=== PATIENT | female | born 1990 | race Caucasian/White ===

== ENCOUNTER 2021-07-12 18:02 | Emergency (ER) | payer BC, OTHER ==
[~2021-07-12] VITALS: Ht 167.7 cm; Wt 117.6 kg
[~2021-07-12 18:02] MED LIST: BUTA1TAB46 PO; PHEN200T27 PO; SULF1TAB38 PO; [UNRECOGNIZED DRUG - OTHER]
[2021-07-12] MEDS ORDERED: KETOROLAC 30 MG/ML VIAL IVP ONE (18:30)
[2021-07-12] MEDS ORDERED: ORPHENADRINE 60 MG/2 ML (NORFLEX) AMP (ED ONLY) IVP ONE (18:30)
--- NOTE | 2021-07-12 18:35 | ED Headache ---
General Chief Complaint: Head/Cervical Problems Stated Complaint: HEADACHE Nursing Triage Note: HEADACHE STARTED CONSTANT 3 WEEKS AGO, WITH HOT FLASHES AND BILATERAL ARM TINGLING, LIGHT HEADED AND DIZZINESS. 8/10 ON PAIN SCALE. Source: patient Exam Limitations: no limitations History of Present Illness Date Seen by Provider: Jul 12, 2021 Time Seen by Provider: 18:21 Initial Comments This is a well-appearing 31-year-old female who presented to the ER with complaints of constant headache just above her right ear for the past 3 weeks. States that she has a constant sharp, achy, stabbing sensation that is localized to the area. Reports intermittent hot flashes and dizziness. States that she did have some neck tenderness/muscle pain that was also associated with some tingling in her arms. Allergies and Home Medications Allergies Coded Allergies: cefaclor (Unverified Allergy, Mild, 01/20/09) medroxyprogesterone (Unverified Adverse Reaction, Unknown, nausea, 07/12/21) Patient Home Medication List Home Medication List Reviewed: Yes Acetamin/Butalbital/Caffeine (Esgic 50-325-40 Mg Tablet) 1 Each Tablet, 1 EACH PO Q 4 - 6 HRS PRN Prescribed by: VLAD ACOSTA on 12/18/11 0527 Review of Systems Review of Systems Constitutional: no symptoms reported Eyes: See HPI Ears, Nose, Mouth, Throat: no symptoms reported Respiratory: no symptoms reported Cardiovascular: no symptoms reported Gastrointestinal: no symptoms reported Genitourinary: no symptoms reported Musculoskeletal: no symptoms reported Skin: no symptoms reported Psychiatric/Neurological: No Symptoms Reported Past Kbyfkdi-Jgmwnz-Qgtmse Hx Patient Social History Tobacco Use?: No Use of E-Cig and/or Vaping dev: No Substance use?: No Alcohol Use?: Yes Alcohol Frequency: Once in a while Pt feels they are or have been: No Past Medical History Last Menstrual Period: Jun 25, 2021 Physical Exam Vital Signs Vital Signs - First Documented 07/12/21 18:10 Temp 36.6 Pulse 97 Resp 18 B/P (MAP) 113/89 (97) Pulse Ox 100 O2 Delivery Room Air Capillary Refill : Less Than 3 Seconds Height, Weight, BMI Height: '" Weight: lbs. oz. kg; 41.00 BMI Method:Estimated General Appearance: WD/WN, no apparent distress HEENT: PERRL/EOMI, normal ENT inspection, pharynx normal Neck: full range of motion, normal inspection Cardiovascular: regular rate, rhythm, no edema, no murmur Respiratory: chest non-tender, lungs clear, normal breath sounds, no respiratory distress, no accessory muscle use Gastrointestinal: normal bowel sounds, non tender, soft Back: normal inspection, no vertebral tenderness Extremities: normal range of motion, non-tender, normal inspection, no pedal edema Psychiatric: alert, oriented x 3 Crainal Nerves: normal hearing, normal speech, PERRL Coordination/Gait: normal gait Motor/Sensory: no motor deficit, no sensory deficit, no pronator drift Skin: normal color, warm/dry Progress/Results/Core Measures Results/Orders Lab Results Laboratory Tests Test 07/12/21 18:19 07/12/21 18:30 07/12/21 19:00 Range/Units Glucometer 95 70-110 MG/DL White Blood Count 11.4 H 4.3-11.0 10^3/uL Red Blood Count 4.97 3.80-5.11 10^6/uL Hemoglobin 13.9 11.5-16.0 g/dL Hematocrit 44 35-52 % Mean Corpuscular Volume 88 80-99 fL Mean Corpuscular Hemoglobin 28 25-34 pg Mean Corpuscular Hemoglobin Concent 32 32-36 g/dL Red Cell Distribution Width 12.8 10.0-14.5 % Platelet Count 305 130-400 10^3/uL Mean Platelet Volume 9.8 9.0-12.2 fL Immature Granulocyte % (Auto) 0 % Neutrophils (%) (Auto) 63 42-75 % Lymphocytes (%) (Auto) 28 12-44 % Monocytes (%) (Auto) 6 0-12 % Eosinophils (%) (Auto) 2 0-10 % Basophils (%) (Auto) 1 0-10 % Neutrophils # (Auto) 7.2 1.8-7.8 10^3/uL Lymphocytes # (Auto) 3.2 1.0-4.0 10^3/uL Monocytes # (Auto) 0.7 0.0-1.0 10^3/uL Eosinophils # (Auto) 0.2 0.0-0.3 10^3/uL Basophils # (Auto) 0.1 0.0-0.1 10^3/uL Immature Granulocyte # (Auto) 0.0 0.0-0.1 10^3/uL Erythrocyte Sedimentation Rate 4 0-20 MM/HR Sodium Level 137 135-145 MMOL/L Potassium Level 3.5 L 3.6-5.0 MMOL/L Chloride Level 102 98-107 MMOL/L Carbon Dioxide Level 23 21-32 MMOL/L Anion Gap 12 5-14 MMOL/L Blood Urea Nitrogen 13 7-18 MG/DL Creatinine 0.80 0.60-1.30 MG/DL Estimat Glomerular Filtration Rate 84 BUN/Creatinine Ratio 16 Glucose Level 109 H 70-105 MG/DL Calcium Level 9.8 8.5-10.1 MG/DL Corrected Calcium 9.6 8.5-10.1 MG/DL Total Bilirubin 0.3 0.1-1.0 MG/DL Aspartate Amino Transf (AST/SGOT) 14 5-34 U/L Alanine Aminotransferase (ALT/SGPT) 12 0-55 U/L Alkaline Phosphatase 100 40-136 U/L C-Reactive Protein High Sensitivity 0.90 H 0.00-0.50 MG/DL Total Protein 7.6 6.4-8.2 GM/DL Albumin 4.3 3.2-4.5 GM/DL Urine Color YELLOW Urine Clarity CLEAR Urine pH 6.0 5-9 Urine Specific [place] 1.010 L 1.016-1.022 Urine Protein NEGATIVE NEGATIVE Urine Glucose (UA) NEGATIVE NEGATIVE Urine Ketones NEGATIVE NEGATIVE Urine Nitrite NEGATIVE NEGATIVE Urine Bilirubin NEGATIVE NEGATIVE Urine Urobilinogen 0.2 < = 1.0 MG/DL Urine Leukocyte Esterase 1+ H NEGATIVE Urine RBC (Auto) 1+ H NEGATIVE Urine RBC 0-2 /HPF Urine WBC 0-2 /HPF Urine Squamous Epithelial Cells NONE /HPF Urine Renal Epithelial Cells NONE /HPF Urine Crystals NONE /LPF Urine Bacteria LARGE H /HPF Urine Casts NONE /LPF Urine Mucus NEGATIVE /LPF Urine Culture Indicated YES My Orders Orders - KARIME BYNUM APRN Cbc With Automated Diff (07/12/21 18:28) Comprehensive Metabolic Panel (07/12/21 18:28) Erythrocyte Sedimentation Rate (07/12/21 18:28) Hs C Reactive Protein (07/12/21 18:28) Urine Bedside (07/12/21 18:28) Ua Culture If Indicated (07/12/21 18:28) Ketorolac Injection (Toradol Injection) (07/12/21 18:30) Orphenadrine Inj (Ed Only) (Norflex Inje (07/12/21 18:30) Ct Head/Cervical Spine Wo (07/12/21 18:36) Urine Culture (07/12/21 19:00) Hydrocodone/Apap 5/325 Tablet (Lortab 5 (07/12/21 20:30) Medications Given in ED Current Medications Medications Dose Ordered Sig/Joan Route Start Time Stop Time Status Last Admin Dose Admin Acetaminophen/ Hydrocodone Bitart 1 ea ONCE ONCE PO 07/12/21 20:30 07/12/21 20:31 DC 07/12/21 21:16 1 EA Ketorolac Tromethamine 30 mg ONCE ONCE IVP 07/12/21 18:30 07/12/21 18:31 DC 07/12/21 18:53 30 MG Orphenadrine Citrate 30 mg ONCE ONCE IVP 07/12/21 18:30 07/12/21 18:31 DC 07/12/21 18:53 30 MG Vital Signs/I&O 07/12/21 18:10 Temp 36.6 Pulse 97 Resp 18 B/P (MAP) 113/89 (97) Pulse Ox 100 O2 Delivery Room Air Blood Pressure Mean: 97 FSBG Bedside Testing Finger Stick Blood Glucose: 95 Departure Impression Primary Impression: Migraine Disposition: 01 HOME, SELF-CARE Condition: Stable Departure-Patient Inst. Decision time for Depature: 20:09 Referrals: CANDELARIA LOPEZ DO (PCP/Family) Primary Care Physician Patient Instructions: Migraines in Adults Add. Discharge Instructions: Plan: 1. Keep follow up with your primary care provider as previously scheduled. 2. May take Tylenol or Ibuprofen as needed for pain. 3. Take Magnesium Glycinate daily to see if this will improve/prevent your migraine. 4. Return for any new, concerning, or worsening symptoms. 5. Take Hydrocodone as directed for severe breakthrough pain. Do not exceed more than 3000mg Tylenol in 24 hours. All discharge instructions reviewed with patient and/or family. Voiced understanding. Scripts Hydrocodone/Acetaminophen (Hydrocodone-Acetamin 5-325 mg) 1 Each Tablet 1 TAB PO Q6H PRN for PAIN-MODERATE (5-7), #10 TAB 0 Refills Prov: KARIME BYNUM WEB MARKETING STRATEGIST 07/12/21 KARIME BYNUM WEB MARKETING STRATEGIST Jul 12, 2021 18:35
[2021-07-12 18:49] LABS: ALBUMIN 4.3 GM/DL (3.2-4.5); POTASSIUM 3.5 MMOL/L (3.6-5.0)
[2021-07-12 18:51] LABS: CALCIUM 9.8 MG/DL (8.5-10.1)
[2021-07-12 18:52] LABS: BASOPHILS # (AUTO) 0.1 10^3/uL (0.0-0.1); BASOPHILS % (AUTO) 1 % (0-10); EOSINOPHILS # (AUTO) 0.2 10^3/uL (0.0-0.3); EOSINOPHILS % (AUTO) 2 % (0-10); HEMATOCRIT 44 % (35-52); HEMOGLOBIN 13.9 g/dL (11.5-16.0); LYMPHOCYTES # (AUTO) 3.2 10^3/uL (1.0-4.0); LYMPHOCYTES % (AUTO) 28 % (12-44); MEAN CORPUSCULAR HEMOGLOBIN 28 pg (25-34); MEAN CORPUSCULAR HGB CONC 32 g/dL (32-36); MEAN CORPUSCULAR VOLUME 88 fL (80-99); MEAN PLATELET VOLUME 9.8 fL (9.0-12.2); MONOCYTES # (AUTO) 0.7 10^3/uL (0.0-1.0); MONOCYTES % (AUTO) 6 % (0-12); NEUTROPHILS # (AUTO) 7.2 10^3/uL (1.8-7.8); NEUTROPHILS % (AUTO) 63 % (42-75); PLATELET COUNT 305 10^3/uL (130-400); TOTAL PROTEIN 7.6 GM/DL (6.4-8.2); WHITE BLOOD COUNT 11.4 10^3/uL (4.3-11.0)
[2021-07-12 18:53] LABS: BILIRUBIN,TOTAL 0.3 MG/DL (0.1-1.0)
[2021-07-12 18:55] LABS: CREATININE SERUM 0.8 MG/DL (0.60-1.30)
[2021-07-12 19:07] LABS: BILIRUBIN,URINE NEGATIVE (NEGATIVE); CLARITY,URINE CLEAR; COLOR,URINE YELLOW; GLUCOSE, URINE (UA) NEGATIVE (NEGATIVE); KETONES,URINE NEGATIVE (NEGATIVE); LEUKOCYTE ESTERASE ,URINE 1+ (NEGATIVE); NITRITE,URINE NEGATIVE (NEGATIVE); PROTEIN,URINE NEGATIVE (NEGATIVE)
[2021-07-12 19:11] LABS: ERYTHROCYTE SEDIMENTATION RATE 4 MM/HR (0-20)
[2021-07-12 19:18] LABS: BACTERIA,URINE LARGE /HPF; RBC,URINE 0-2 /HPF; WBC,URINE 0-2 /HPF
--- NOTE | 2021-07-12 19:51 | Diagnostic Imaging Report ---
PROCEDURE: CT head and CT cervical spine without contrast. TECHNIQUE: Multiple contiguous axial images were obtained through the brain and cervical spine without the use of intravenous contrast. Sagittal and coronal reformations through the cervical spine were then performed. Auto Exposure Controls were utilized during the CT exam to meet ALARA standards for radiation dose reduction. INDICATION: Right periauricular head pain accompanied by dizziness, nausea and vomiting. Numbness and tingling in the extremities. COMPARISON: No priors Head: There is no intracranial hemorrhage, hydrocephalus, edema, mass, mass effect or evidence for an elevation of the intracerebral pressures. The basilar cisterns patent. No sulcal effacement. The gr-white matter differentiations are maintained. The orbits, sinuses and calvarium nonacute. Cervical spine: Body heights normal. The alignment anatomic. The spinal canal patent. No fracture, bony destruction or paraspinal mass, hemorrhage or fluid collection. The prevertebral space appeared normal. No spinal stenosis. The craniocervical relationship normal. IMPRESSION: CT head and cervical spine. Dictated by: Dictated on workstation # [id number]
[2021-07-12] MEDS ORDERED: HYDROcodone/APAP 5 MG/325 MG (LORTAB) TAB PO ONE (20:30)
[2021-07-12] MEDS ORDERED: ACHD5005 PO (21:59)
[2021-07-12 22:50] VITALS: BP 111/71
== END 2021-07-12 22:50 | disposition home or self-care (01) ==
LOC: EDUNIT# 18:02 → ER 18:04
DX: G43.909 Migraine, unspecified, not intractable, without status migrainosus (principal)
CPT/HCPCS: 36415; 70450; 72125; 80053; 81000; 82947; 84703; 85025; 85652; 86141; 87077; 87088; 87186

== ENCOUNTER 2022-06-13 19:07 | Emergency (ER) | payer BC ==
[~2022-06-13] VITALS: Ht 172 cm; Wt 86.0 kg
[~2022-06-13 19:07] MED LIST changes: +ACHD5005 PO
[2022-06-13 20:00] LABS: BILIRUBIN,URINE NEGATIVE (NEGATIVE); CLARITY,URINE SL CLOUDY; COLOR,URINE YELLOW; GLUCOSE, URINE (UA) NEGATIVE (NEGATIVE); KETONES,URINE 1+ (NEGATIVE); LEUKOCYTE ESTERASE ,URINE NEGATIVE (NEGATIVE); NITRITE,URINE NEGATIVE (NEGATIVE); PROTEIN,URINE NEGATIVE (NEGATIVE)
[2022-06-13 20:25] LABS: BACTERIA,URINE NEGATIVE /HPF; RBC,URINE 50-100 /HPF; SQUAMOUS EPITHELIAL CELL,UR RARE /HPF; WBC,URINE RARE /HPF
[2022-06-13 20:26] LABS: HYALINE CASTS, URINE RARE /LPF; RENAL EPITHELIAL CELLS,URINE 0-2 /HPF
[2022-06-13 21:10] LABS: BASOPHILS % (AUTO) 0 % (0-10); EOSINOPHILS # (AUTO) 0.1 10^3/uL (0.0-0.3); EOSINOPHILS % (AUTO) 1 % (0-10); HEMATOCRIT 42 % (35-52); HEMOGLOBIN 13.5 g/dL (11.5-16.0); LYMPHOCYTES # (AUTO) 2.6 10^3/uL (1.0-4.0); LYMPHOCYTES % (AUTO) 22 % (12-44); MEAN CORPUSCULAR HEMOGLOBIN 28 pg (25-34); MEAN CORPUSCULAR HGB CONC 32 g/dL (32-36); MEAN CORPUSCULAR VOLUME 87 fL (80-99); MEAN PLATELET VOLUME 9.9 fL (9.0-12.2); MONOCYTES # (AUTO) 0.8 10^3/uL (0.0-1.0); MONOCYTES % (AUTO) 7 % (0-12); NEUTROPHILS # (AUTO) 8.1 10^3/uL (1.8-7.8); NEUTROPHILS % (AUTO) 70 % (42-75); PLATELET COUNT 288 10^3/uL (130-400); WHITE BLOOD COUNT 11.7 10^3/uL (4.3-11.0)
[2022-06-13] MEDS ORDERED: HYOSCYAMINE 0.125 MG (LEVSIN) TAB SL ONE (21:30)
[2022-06-13] MEDS ORDERED: ONDANSETRON 4 MG/2 ML (SDV) Z0FRAN IVP ONE (21:30)
[2022-06-13] MEDS ORDERED: KETOROLAC 30 MG/ML VIAL IVP ONE (22:15)
--- NOTE | 2022-06-13 22:29 | ED GU-Female ---
General Chief Complaint: Abdominal/GI Problems Stated Complaint: CRAMPS, VAGINAL BLEEDING Nursing Triage Note: PATIENT VERBALIZED SHE HAS HEAVING BLEEDING STATES GONE THORUGH MULTIPLE TAMPONS AND PADS TODAY. STATES HAS CLOTS. VERBALIZED LIGHT BLEEDING STARTED YESTERDAY. COMPLAINT OF LOWER ABDOMINAL PAIN/CRAMPING. Source: patient Exam Limitations: no limitations (JAKE TA MD) History of Present Illness Date Seen by Provider: Jun 13, 2022 Time Seen by Provider: 19:14 (JAKE TA MD) Allergies and Home Medications Allergies Coded Allergies: cefaclor (Unverified Allergy, Mild, 01/20/09) medroxyprogesterone (Unverified Adverse Reaction, Unknown, nausea, 07/12/21) Patient Home Medication List Home Medication List Reviewed: Yes (DEBBIE LOPEZ) Acetamin/Butalbital/Caffeine (Esgic 50-325-40 Mg Tablet) 1 Each Tablet, 1 EACH PO Q 4 - 6 HRS PRN Prescribed by: VLAD ACOSTA on 12/18/11 0527 Doxycycline Hyclate (Doxycycline Hyclate) 100 Mg Tablet, 100 MG PO BID Prescribed by: DEBBIE LOPEZ on 06/14/22924 Last Action: New Order Hydrocodone/Acetaminophen (Hydrocodone-Acetamin 5-325 mg) 1 Each Tablet, 1 TAB PO Q6H PRN for PAIN-MODERATE (5-7) Prescribed by: KARIME BYNUM on 07/12/21 2200 Ondansetron (Ondansetron Odt) 4 Mg Tab.rapdis, 4 MG PO Q6H PRN for NAUSEA/VOMITING Prescribed by: DEBBIE LOPEZ on 06/14/22924 Last Action: New Order Physical Exam Vital Signs Vital Signs - First Documented 06/13/22 20:24 Temp 36.3 Pulse 95 Resp 20 B/P (MAP) 131/83 (99) Pulse Ox 98 O2 Delivery Room Air (DEBBIE LOPEZ) Vital Signs Capillary Refill : Less Than 3 Seconds (JAKE TA MD) Height, Weight, BMI Height: '" Weight: lbs. oz. kg; 29.00 BMI Method:Estimated (JAKE TA MD) Progress/Results/Core Measures Suspected Sepsis SIRS Temperature: Pulse: 95 Respiratory Rate: 20 Laboratory Tests 9/5/22 20:48: White Blood Count 11.7H Blood Pressure 131 /83 Mean: 99 Laboratory Tests 06/13/22 20:48: Platelet Count 288 (JAKE TA MD) Results/Orders Lab Results Laboratory Tests Test 06/13/22 19:50 06/13/22 20:48 Range/Units Urine Color YELLOW Urine Clarity SL CLOUDY Urine pH 6.0 5-9 Urine Specific [place] >=1.030 1.016-1.022 Urine Protein NEGATIVE NEGATIVE Urine Glucose (UA) NEGATIVE NEGATIVE Urine Ketones 1+ H NEGATIVE Urine Nitrite NEGATIVE NEGATIVE Urine Bilirubin NEGATIVE NEGATIVE Urine Urobilinogen 0.2 < = 1.0 MG/DL Urine Leukocyte Esterase NEGATIVE NEGATIVE Urine RBC (Auto) 3+ H NEGATIVE Urine RBC 50-100 H /HPF Urine WBC RARE /HPF Urine Squamous Epithelial Cells RARE /HPF Urine Renal Epithelial Cells 0-2 /HPF Urine Crystals NONE /LPF Urine Bacteria NEGATIVE /HPF Urine Casts PRESENT /LPF Urine Hyaline Casts RARE /LPF Urine Mucus MODERATE H /LPF Urine Culture Indicated NO White Blood Count 11.7 H 4.3-11.0 10^3/uL Red Blood Count 4.90 3.80-5.11 10^6/uL Hemoglobin 13.5 11.5-16.0 g/dL Hematocrit 42 35-52 % Mean Corpuscular Volume 87 80-99 fL Mean Corpuscular Hemoglobin 28 25-34 pg Mean Corpuscular Hemoglobin Concent 32 32-36 g/dL Red Cell Distribution Width 13.4 10.0-14.5 % Platelet Count 288 130-400 10^3/uL Mean Platelet Volume 9.9 9.0-12.2 fL Immature Granulocyte % (Auto) 1 % Neutrophils (%) (Auto) 70 42-75 % Lymphocytes (%) (Auto) 22 12-44 % Monocytes (%) (Auto) 7 0-12 % Eosinophils (%) (Auto) 1 0-10 % Basophils (%) (Auto) 0 0-10 % Neutrophils # (Auto) 8.1 H 1.8-7.8 10^3/uL Lymphocytes # (Auto) 2.6 1.0-4.0 10^3/uL Monocytes # (Auto) 0.8 0.0-1.0 10^3/uL Eosinophils # (Auto) 0.1 0.0-0.3 10^3/uL Basophils # (Auto) 0.0 0.0-0.1 10^3/uL Immature Granulocyte # (Auto) 0.1 0.0-0.1 10^3/uL Human Chorionic Gonadotropin, Quant 1062 H <5 MIU/ML (DEBBIE LOPEZ) Medications Given in ED (DEBBIE LOPEZ) Vital Signs/I&O (DEBBIE LOPEZ) Vital Signs/I&O Capillary Refill : Less Than 3 Seconds (JAKE TA MD) Blood Pressure Mean: 99 Progress Note : Time: 09:26 Progress Note The patient had her ultrasound outpatient and I met with her and discussed the findings that there was a heterogenous mass in the lower uterine segment and upper vagina around the cervix without any pole. She did not know she was until tonight. We discussed with her she is likely having a miscarriage based on her quantitative and history and ultrasound. She is having a little nausea and a fever. For the potential of a endometritis we will send her out on doxycycline for 10 days, ondansetron and follow-up with her core cleaner today. Patient's questions were answered and she is okay with this plan. (DEBBIE LOPEZ) Departure Impression Primary Impression: Vaginal bleeding during Additional Impression: Pelvic pain affecting Qualified Codes: O26.891 - Other specified related conditions, first trimester; R10.2 - Pelvic and perineal pain Disposition: 01 HOME, SELF-CARE Condition: Stable Departure-Patient Inst. Decision time for Depature: 22:26 (JAKE TA MD) Referrals: CANDELARIA LOPEZ DO (PCP/Family) Primary Care Physician Patient Instructions: Bleeding in Early (DC), Threatened Miscarriage Add. Discharge Instructions: You may take ibuprofen up to 600 mg every 6 hours and/or Tylenol (acetaminophen) up to 1000 mg every 6 hours as needed for pain. Expect continued cramping and heavier bleeding if this is a miscarriage. Do not use tampons. Return to the ER if you have excessive hemorrhaging type of bleeding, lightheadedness, fever over 100.3 F, vomiting, worsening shortness of breath, intolerable pain, etc. Return to the hospital at 7:30 tomorrow morning with your order sheet for labs and and ultrasound. Do not eat or drink after 2:00 AM. After your ultrasound, weight at the hospital until you receive instructions based on ultrasound report. You will need to follow-up with a primary care or women's health provider soon as possible to follow your condition after leaving the hospital. All discharge instructions reviewed with patient and/or family. Voiced understanding. Scripts Ondansetron (Ondansetron Odt) 4 Mg Tab.rapdis 4 MG PO Q6H PRN for NAUSEA/VOMITING, #10 TAB 0 Refills Prov: DEBBIE LOPEZ 06/14/22 Doxycycline Hyclate (Doxycycline Hyclate) 100 Mg Tablet 100 MG PO BID for 10 Days, #20 TAB 0 Refills Prov: DEBBIE LOPEZ 06/14/22 JAKE AT MD Jun 13, 2022 22:29 DEBBIE LOPEZ Jun 14, 2022 09:26
[2022-06-13 22:43] VITALS: BP 128/78
[2022-06-14] MEDS ORDERED: DOXY100T2 PO (09:25)
[2022-06-14] MEDS ORDERED: ONDA4TAB11 PO (09:25)
== END 2022-06-13 22:45 | disposition home or self-care (01) ==
LOC: EDUNIT# 19:07 → ER 19:09
DX: O46.90 Antepartum hemorrhage, unspecified, unspecified trimester (principal); Z3A.00 Weeks of gestation of pregnancy not specified
CPT/HCPCS: 36415; 81000; 84702; 84703; 85025; 86900; 86901

== ENCOUNTER → 2022-06-14 | Outpatient (CLI) | payer BC ==
[~2022-06-14] MED LIST changes: +DOXY100T2 PO; +ONDA4TAB11 PO
[2022-06-14 09:43] LABS: BASOPHILS % (AUTO) 0 % (0-10); EOSINOPHILS # (AUTO) 0.1 10^3/uL (0.0-0.3); EOSINOPHILS % (AUTO) 1 % (0-10); HEMATOCRIT 42 % (35-52); HEMOGLOBIN 13.3 g/dL (11.5-16.0); LYMPHOCYTES # (AUTO) 1.5 10^3/uL (1.0-4.0); LYMPHOCYTES % (AUTO) 19 % (12-44); MEAN CORPUSCULAR HEMOGLOBIN 28 pg (25-34); MEAN CORPUSCULAR HGB CONC 32 g/dL (32-36); MEAN CORPUSCULAR VOLUME 87 fL (80-99); MEAN PLATELET VOLUME 9.8 fL (9.0-12.2); MONOCYTES # (AUTO) 0.6 10^3/uL (0.0-1.0); MONOCYTES % (AUTO) 7 % (0-12); NEUTROPHILS # (AUTO) 5.9 10^3/uL (1.8-7.8); NEUTROPHILS % (AUTO) 73 % (42-75); PLATELET COUNT 288 10^3/uL (130-400); WHITE BLOOD COUNT 8.2 10^3/uL (4.3-11.0)
--- NOTE | 2022-06-14 09:57 | Diagnostic Imaging Report ---
Indication: Pelvic pain and bleeding. Transabdominal and transvaginal obstetrical ultrasound was performed. Limited pelvic Doppler was also performed. Uterus measures 8.3 x 4.2 x 5.2 cm. Endometrium is 8 mm in thickness. There is a complex masslike area in the lower uterine segment measuring 4.2 x 3.4 x 4.6 cm without internal vascularity. This could represent blood products. No gestational sac is seen within the uterus or within the adnexa. Right ovary measures 3.2 x 1.7 x 1.7 cm and the left ovary measures 3.4 x 1.9 x 2.0 cm. There is blood flow to the ovaries. No adnexal mass or free fluid is seen. IMPRESSION: Complex masslike region in lower uterine segment and cervix, perhaps representing blood products from spontaneous . No intrauterine or ectopic is identified. Dictated by: Dictated on workstation # [id number]
== END ==
LOC: RAD 08:10
PROVIDERS: ATTEND Family Medicine
DX: O26.859 Spotting complicating pregnancy, unspecified trimester (principal); Z3A.00 Weeks of gestation of pregnancy not specified
CPT/HCPCS: 36415; 76801; 76817; 84702; 85025

== ENCOUNTER 2022-06-15 10:06 | Emergency (ER) | payer BC ==
[2022-06-15] MEDS ORDERED: ONDANSETRON 4 MG/2 ML (SDV) Z0FRAN ONE (10:40)
[2022-06-15] MEDS ORDERED: PROMETHAZINE INJ 25 MG/ML (PHENERGAN) AMP IVP ONE (11:00)
[2022-06-15] MEDS ORDERED: KETOROLAC 30 MG/ML VIAL IVP ONE (11:00)
[2022-06-15] MEDS ORDERED: NS IV 1000 ML 1,000 ML IV ONE (11:00)
--- NOTE | 2022-06-15 12:17 | ED Abdominal Pain ---
General Chief Complaint: Abdominal/GI Problems Stated Complaint: ABD/PELVIC PAIN - VOMITING - FEVER Nursing Triage Note: PT AMB TO [facility] 8 WITH C/O LOW ABD CRAMPING AND BLEEDING AFTER MISCARRIAGE. PT STATES SHE HAS ALSO STARTED VOMITTING THIS MORNING. Source of Information: Patient Exam Limitations: No Limitations History of Present Illness Date Seen by Provider: Jun 15, 2022 Time Seen by Provider: 12:12 Allergies and Home Medications Allergies Coded Allergies: cefaclor (Unverified Allergy, Mild, 01/20/09) medroxyprogesterone (Unverified Adverse Reaction, Unknown, nausea, 07/12/21) Patient Home Medication List Acetamin/Butalbital/Caffeine (Esgic 50-325-40 Mg Tablet) 1 Each Tablet, 1 EACH PO Q 4 - 6 HRS PRN Prescribed by: VLDA ACOSTA on 12/18/11 0527 Doxycycline Hyclate (Doxycycline Hyclate) 100 Mg Tablet, 100 MG PO BID Prescribed by: DEBBIE LOPEZ on 06/14/22 0925 Hydrocodone/Acetaminophen (Hydrocodone-Acetamin 5-325 mg) 1 Each Tablet, 1 TAB PO Q6H PRN for PAIN-MODERATE (5-7) Prescribed by: KARIME BYNUM on 07/12/21 2200 Ondansetron (Ondansetron Odt) 4 Mg Tab.rapdis, 4 MG PO Q6H PRN for NAUSEA/VOMITING Prescribed by: DEBBIE LOPEZ on 06/14/22 0925 Past Ulqsrcm-Wtstdy-Dvbrpn Hx Patient Social History Tobacco Use?: No Use of E-Cig and/or Vaping dev: No Substance use?: No Alcohol Use?: No Pt feels they are or have been: No Immunizations Up To Date First/Initial COVID19 Vaccinat: YES Second COVID19 Vaccination Ismael: YES Third COVID19 Vaccination Date: YES Physical Exam Vital Signs Vital Signs - First Documented 06/15/22 10:29 Temp 37.0 Pulse 74 Resp 18 B/P (MAP) 126/73 (90) Capillary Refill : Height/Weight/BMI Height: '" Weight: lbs. oz. kg; 29.00 BMI Method:Estimated Progress/Results/Core Measures Results/Orders My Orders Orders - KARIME BYNUM MANAGER VALUATION Ketorolac Injection (Toradol Injection) (06/15/22 11:00) Ns Iv 1000 Ml (Sodium Chloride 0.9%) (06/15/22 11:00) Medications Given in ED Current Medications Medications Dose Ordered Sig/Joan Route Start Time Stop Time Status Last Admin Dose Admin Ketorolac Tromethamine 30 mg ONCE ONCE IVP 06/15/22 11:00 06/15/22 11:01 DC 06/15/22 11:20 30 MG Ondansetron HCl 4 mg STK-MED ONCE .ROUTE 06/15/22 10:40 06/15/22 10:45 DC 06/15/22 10:55 4 MG Sodium Chloride 1,000 ml @ 999 mls/hr ONCE ONCE IV 06/15/22 11:00 06/15/22 12:00 DC 06/15/22 11:19 999 MLS/HR Vital Signs/I&O 06/15/22 10:29 Temp 37.0 Pulse 74 Resp 18 B/P (MAP) 126/73 (90) Blood Pressure Mean: 90 Departure Impression Primary Impression: Spontaneous miscarriage Disposition: HOME, SELF-CARE Condition: Improved Departure-Patient Inst. Decision time for Depature: 12:12 Referrals: CANDELARIA LOPEZ DO (PCP/Family) Primary Care Physician Patient Instructions: Miscarriage, Loss (Miscarriage) ED Add. Discharge Instructions: Plan: 1. Discharge home. Return precautions outlined below. You can continue your Doxycycline as previously directed. 2. You will probably have some vaginal bleeding for 1 to 2 weeks. It may be similar to or slightly heavier than a normal period. The bleeding should get steward/stewardess dining room after a week. Use sanitary pads until you stop bleeding. 3. Take an rufp-hvt-dteppyh pain medicine, such as acetaminophen (Tylenol), ibuprofen (Advil, Motrin), or naproxen (Aleve) for cramps per bottle instructions. 4. You may have cramps for several days after the miscarriage. 5. Eat a balanced diet that is high in iron and vitamin C. Foods rich in iron include red meat, shellfish, eggs, beans, and leafy green vegetables. Foods high in vitamin C include citrus fruits, tomatoes, and broccoli. 6. Follow up with your ART DEPARTMENT HEAD, please call to schedule close follow up. 7. Return precautions: Fever of 100.4 or higher, vaginal odor, increased pain, heavy bleeding, saturating a pad a hour, dizziness, fainting, shortness of breathing. 8. Return for any new, concerning, or worsening symptoms. All discharge instructions reviewed with patient and/or family. Voiced understanding. KARIME BYNUM MANAGER VALUATION Jun 15, 2022 12:17
[2022-06-15 12:22] VITALS: BP 124/70
== END 2022-06-15 12:22 | disposition home or self-care (01) ==
LOC: EDUNIT# 10:06 → ER 10:08
DX: O03.9 Complete or unspecified spontaneous abortion without complication (principal)

== ENCOUNTER 2022-11-19 17:25 | Emergency (ER) | payer BC ==
[~2022-11-19] VITALS: Ht 167 cm; Wt 116.5 kg
[2022-11-19] MEDS ORDERED: NS IV 1000 ML 1,000 ML IV STA (17:46)
--- NOTE | 2022-11-19 17:48 | ED GU-Female ---
General Chief Complaint: - Reproductive Stated Complaint: UTI | 11 WEEKS Source: patient Exam Limitations: no limitations (MJ OCHOA MD) History of Present Illness Date Seen by Provider: Nov 19, 2022 Time Seen by Provider: 17:32 Initial Comments Here with report of dysuria and low back pain for a few days as well as nausea and vomiting that has persisted throughout her . She is approximately 11 weeks by dates. She has had 1 previous that resulted in early miscarriage. She follows with Dr. Smith for her OB work-up. She has had pr escription for Reglan and ondansetron (which she is currently on) for nausea and vomiting and states that that is not helping. She is worried about urinary tract infection. She thought she might of had a low-grade fever earlier. Denies bleeding. Timing/Duration: getting worse, other (Cellulitis) Severity/Quality: mild, aching, burning Location: suprapubic, urethral Radiation: back Activities at Onset: none Associated Symptoms: abdominal pain, dysuria, fever/chills, lower back pain, nausea/vomiting (MJ OCHOA MD) Allergies and Home Medications Allergies Coded Allergies: cefaclor (Unverified Allergy, Mild, 01/20/09) medroxyprogesterone (Unverified Adverse Reaction, Unknown, nausea, 07/12/21) Patient Home Medication List Home Medication List Reviewed: Yes (MJ OCHOA MD) Acetamin/Butalbital/Caffeine (Esgic 50-325-40 Mg Tablet) 1 Each Tablet, 1 EACH PO Q 4 - 6 HRS PRN Prescribed by: VLAD ACOSTA on 12/18/11 0527 Doxycycline Hyclate (Doxycycline Hyclate) 100 Mg Tablet, 100 MG PO BID Prescribed by: DEBBIE LOPEZ on 06/14/22 0925 Doxylamine/Pyridoxine HCl (Julia Alvarado 10-10 mg Tablet) 10 Mg-10 Mg Tablet.dr, 2 EACH PO HS Prescribed by: VLAD ACOSTA on 11/19/221930 Hydrocodone/Acetaminophen (Hydrocodone-Acetamin 5-325 mg) 1 Each Tablet, 1 TAB PO Q6H PRN for PAIN-MODERATE (5-7) Prescribed by: KARIME BYNUM on 07/12/212199 Nitrofurantoin Monohyd/M-Cryst (Macrobid 100 mg Capsule) 100 Mg Capsule, 1 TAB PO BID Prescribed by: VLAD ACOSTA on 11/19/221935 Ondansetron (Ondansetron Odt) 4 Mg Tab.rapdis, 4 MG PO Q6H PRN for NAUSEA/VOMITING Prescribed by: DEBBIE LOPEZ on 06/14/22 09 Ondansetron (Ondansetron Odt) 4 Mg Tab.rapdis, 4 MG PO Q4H Prescribed by: VLAD ACOSTA on 11/19/221930 Review of Systems Review of Systems Constitutional: fever; No weakness EENTM: no symptoms reported Respiratory: No cough, No short of breath Cardiovascular: no symptoms reported Gastrointestinal: nausea, vomiting Genitourinary: burning, dysuria : Yes Musculoskeletal: back pain (MJ OCHOA MD) Past Jxqbnic-Atdmgc-Auxzdj Hx Patient Social History Tobacco Use?: No Substance use?: No Alcohol Use?: No Pt feels they are or have been: No (MJ OCHOA MD) Immunizations Up To Date First/Initial COVID19 Vaccinat: YES Second COVID19 Vaccination Ismael: YES Third COVID19 Vaccination Date: YES (MJ OCHOA MD) Past Medical History Surgeries: Yes (Foreign body removed from foot (needle)) Neurological: Yes Headaches /Migraines (MJ OCHOA MD) Family Medical History Reviewed and Corrections made (MJ OCHOA MD) Physical Exam Vital Signs Vital Signs - First Documented 11/19/22 11/19/22 17:45 19:53 Temp 36.0 Pulse 109 Resp 16 B/P (MAP) 139/88 (105) Pulse Ox 98 O2 Delivery Room Air (VLAD ACOSTA DO) Vital Signs Capillary Refill : (MJ OCHOA MD) Height, Weight, BMI Height: '" Weight: lbs. oz. kg; 29.00 BMI Method:Estimated General Appearance: WD/WN, no apparent distress HEENT: PERRL/EOMI, pharynx normal Cardiovascular: no murmur, tachycardia Respiratory: lungs clear, normal breath sounds Gastrointestinal: non tender, soft Neurologic/Psychiatric: alert, normal mood/affect, oriented x 3 Skin: normal color, warm/dry (MJ OCHOA MD) Progress/Results/Core Measures Suspected Sepsis SIRS Temperature: Pulse: Respiratory Rate: Laboratory Tests 11/19/22 17:41: White Blood Count 10.4 Blood Pressure / Mean: Laboratory Tests 11/19/22 17:41: Platelet Count 302 (MJ OCHOA MD) Results/Orders Lab Results Laboratory Tests Test 11/19/22 17:41 11/19/22 18:30 Range/Units White Blood Count 10.4 4.3-11.0 10^3/uL Red Blood Count 5.31 H 3.80-5.11 10^6/uL Hemoglobin 14.3 11.5-16.0 g/dL Hematocrit 44 35-52 % Mean Corpuscular Volume 83 80-99 fL Mean Corpuscular Hemoglobin 27 25-34 pg Mean Corpuscular Hemoglobin Concent 33 32-36 g/dL Red Cell Distribution Width 13.8 10.0-14.5 % Platelet Count 302 130-400 10^3/uL Mean Platelet Volume 10.5 9.0-12.2 fL Immature Granulocyte % (Auto) 1 % Neutrophils (%) (Auto) 67 42-75 % Lymphocytes (%) (Auto) 25 12-44 % Monocytes (%) (Auto) 6 0-12 % Eosinophils (%) (Auto) 1 0-10 % Basophils (%) (Auto) 0 0-10 % Neutrophils # (Auto) 7.0 1.8-7.8 10^3/uL Lymphocytes # (Auto) 2.6 1.0-4.0 10^3/uL Monocytes # (Auto) 0.7 0.0-1.0 10^3/uL Eosinophils # (Auto) 0.1 0.0-0.3 10^3/uL Basophils # (Auto) 0.0 0.0-0.1 10^3/uL Immature Granulocyte # (Auto) 0.1 0.0-0.1 10^3/uL Sodium Level 136 135-145 MMOL/L Potassium Level 3.5 L 3.6-5.0 MMOL/L Chloride Level 103 98-107 MMOL/L Carbon Dioxide Level 19 L 21-32 MMOL/L Anion Gap 14 5-14 MMOL/L Blood Urea Nitrogen 5 L 7-18 MG/DL Creatinine 0.67 0.60-1.30 MG/DL Estimat Glomerular Filtration Rate 119 BUN/Creatinine Ratio 7 Glucose Level 85 70-105 MG/DL Calcium Level 9.7 8.5-10.1 MG/DL Corrected Calcium 9.5 8.5-10.1 MG/DL Total Bilirubin 0.5 0.1-1.0 MG/DL Aspartate Amino Transf (AST/SGOT) 17 5-34 U/L Alanine Aminotransferase (ALT/SGPT) 34 0-55 U/L Alkaline Phosphatase 94 40-136 U/L Total Protein 7.6 6.4-8.2 GM/DL Albumin 4.2 3.2-4.5 GM/DL Urine Color IMAN H Urine Clarity CLEAR Urine pH 6.0 5-9 Urine Specific [place] >=1.030 1.016-1.022 Urine Protein TRACE H NEGATIVE Urine Glucose (UA) NEGATIVE NEGATIVE Urine Ketones 3+ H NEGATIVE Urine Nitrite NEGATIVE NEGATIVE Urine Bilirubin NEGATIVE NEGATIVE Urine Urobilinogen 1.0 < = 1.0 MG/DL Urine Leukocyte Esterase TRACE H NEGATIVE Urine RBC (Auto) 1+ H NEGATIVE Urine RBC 0-2 /HPF Urine WBC 10-25 H /HPF Urine Squamous Epithelial Cells 5-10 /HPF Urine Crystals NONE /LPF Urine Bacteria FEW H /HPF Urine Casts NONE /LPF Urine Mucus MODERATE H /LPF Urine Culture Indicated YES (VLAD ACOSTA DO) My Orders Orders - VLAD ACOSTA DO Metoclopramide Injection (Reglan Injecti (11/19/22 18:15) Hcg,Quantitative (11/19/22 18:30) Rx-Ondansetron Po (Rx-Zofran Po) (11/19/22 19:28) Piperacillin Sodium/Tazobactam (Zosyn Vi (11/19/22 19:45) (VLAD ACOSTA DO) Medications Given in ED Current Medications Medications Dose Ordered Sig/Joan Route Start Time Stop Time Status Last Admin Dose Admin Metoclopramide HCl 10 mg ONCE ONCE IVP 11/19/22 18:15 11/19/22 18:16 DC 11/19/22 18:33 10 MG Ondansetron HCl 4 mg ONCE ONCE IVP 11/19/22 18:00 11/19/22 18:01 DC 11/19/22 18:03 4 MG Piperacillin Sod/ Tazobactam Sod 4.5 gm/Sodium Chloride 100 ml @ 200 mls/hr ONCE ONCE IV 11/19/22 19:45 11/19/22 20:14 11/19/22 19:46 200 MLS/HR (VLAD ACOSTA DO) Vital Signs/I&O 11/19/22 11/19/22 17:45 19:53 Temp 36.0 Pulse 109 93 Resp 16 16 B/P (MAP) 139/88 (105) 123/84 Pulse Ox 98 99 O2 Delivery Room Air (VLAD ACOSTA DO) Vital Signs/I&O Capillary Refill : (MJ OCHOA MD) Progress Note : Progress Note Seen and evaluated. IV, labs including CBC, CMP and UA ordered. Normal saline 1 L bolus. Zofran 4 mg IV for nausea. I did perform bedside ultrasound which shows positive movement and heart tones of approximately 140. Differential diagnosis includes UTI, dehydration, electrolyte abnormality 1800: Care transferred to Dr. ACOSTA pending labs, UA and improvement. (MJ OCHOA MD) Progress Note : Progress Note 1800--ASSUMED CARE FROM DR. OCHOA IV FLUIDS AND ZOFRAN HAVE BEEN ORDERED 1914--FEELING MUCH BETTER, AND HAS VOIDED AFTER 1 LITER OF FLUIDS. NAUSEA IS GONE AT THIS TIME. UA DOES SHOW UTI. WILL GIVE DOSE OF IV ANTIBIOTICS HERE, AND SEND HOME WITH RX FOR ANTIBIOTICS, PENDING URINE CULTURE RESULTS. UNEVENTFUL ER STAY VITALS STABLE NO EVIDENCE OF SEPSIS OR SIGNIFICANT DEHYDRATION BLOOD TYPE IS O + PT IS NOT HAVING ANY VAGINAL BLEEDING OR ABDOMINAL PAIN / CRAMPING REVIEWED TEST RESULTS, ANTICIPATED COURSE, SYMPTOMATIC TREATMENT, MEDICATIONS, NEED FOR FOLLOW UP AND RETURN PRECAUTIONS. PT HAS AN APPOINTMENT WITH OB ON 12/05/22 FOR ROUTINE VISIT. (VLAD ACOSTA DO) Departure Impression Primary Impression: Nausea and vomiting during prior to 22 weeks gestation Additional Impression: UTI (urinary tract infection) in in first trimester Disposition: HOME, SELF-CARE Condition: Improved Departure-Patient Inst. Decision time for Depature: 19:29 (VLAD ACOSTA DO) Referrals: CANDELARIA LOPEZ DO (PCP/Family) Primary Care Physician Patient Instructions: Morning Sickness ED, Urinary Tract Infection, Adult (DC) Add. Discharge Instructions: CLEAR LIQUIDS, SIPS AT A TIME--WATER, BROTH, JELLO, GATORADE, POPSICLES BRATS DIET--BANANAS, RICE, APPLESAUCE, TOAST, SALTINES TYLENOL NEEDED FOR PAIN FOLLOW UP WITH YOUR OB DR SCHEDULED, OR SOONER IF NEEDED RETURN TO ER IF YOUR SYMPTOMS WORSEN All discharge instructions reviewed with patient and/or family. Voiced understanding. Scripts Nitrofurantoin Monohyd/M-Cryst (Macrobid 100 mg Capsule) 100 Mg Capsule 1 TAB PO BID, #20 CAP Prov: VLAD ACOSTA DO 11/19/22 Ondansetron (Ondansetron Odt) 4 Mg Tab.rapdis 4 MG PO Q4H for Nausea/Vomiting, #10 TAB Prov: VLAD ACOSTA DO 11/19/22 Doxylamine/Pyridoxine HCl (Julia Alvarado 10-10 mg Tablet) 10 Mg-10 Mg Tablet.dr 2 EACH PO HS, #60 TAB Prov: VLAD ACOSTA DO 11/19/22 MJ OCHOA MD Nov 19, 2022 17:48 VLAD ACOSTA DO Nov 19, 2022 19:33
[2022-11-19 17:53] LABS: BASOPHILS % (AUTO) 0 % (0-10); EOSINOPHILS # (AUTO) 0.1 10^3/uL (0.0-0.3); EOSINOPHILS % (AUTO) 1 % (0-10); HEMATOCRIT 44 % (35-52); HEMOGLOBIN 14.3 g/dL (11.5-16.0); LYMPHOCYTES # (AUTO) 2.6 10^3/uL (1.0-4.0); LYMPHOCYTES % (AUTO) 25 % (12-44); MEAN CORPUSCULAR HEMOGLOBIN 27 pg (25-34); MEAN CORPUSCULAR HGB CONC 33 g/dL (32-36); MEAN CORPUSCULAR VOLUME 83 fL (80-99); MEAN PLATELET VOLUME 10.5 fL (9.0-12.2); MONOCYTES # (AUTO) 0.7 10^3/uL (0.0-1.0); MONOCYTES % (AUTO) 6 % (0-12); NEUTROPHILS % (AUTO) 67 % (42-75); PLATELET COUNT 302 10^3/uL (130-400); WHITE BLOOD COUNT 10.4 10^3/uL (4.3-11.0)
[2022-11-19] MEDS ORDERED: ONDANSETRON 4 MG/2 ML (SDV) Z0FRAN IVP ONE (18:00)
[2022-11-19 18:02] LABS: ALBUMIN 4.2 GM/DL (3.2-4.5)
[2022-11-19 18:03] LABS: POTASSIUM 3.5 MMOL/L (3.6-5.0)
[2022-11-19 18:04] LABS: CALCIUM 9.7 MG/DL (8.5-10.1)
[2022-11-19 18:05] LABS: TOTAL PROTEIN 7.6 GM/DL (6.4-8.2)
[2022-11-19 18:07] LABS: BILIRUBIN,TOTAL 0.5 MG/DL (0.1-1.0)
[2022-11-19 18:08] LABS: CREATININE SERUM 0.67 MG/DL (0.60-1.30)
[2022-11-19] MEDS ORDERED: METOCLOPRAMIDE INJ 10 MG/2 ML (REGLAN) IVP ONE (18:15)
[2022-11-19 18:42] LABS: BILIRUBIN,URINE NEGATIVE (NEGATIVE); CLARITY,URINE CLEAR; COLOR,URINE AMBER; GLUCOSE, URINE (UA) NEGATIVE (NEGATIVE); KETONES,URINE 3+ (NEGATIVE); LEUKOCYTE ESTERASE ,URINE TRACE (NEGATIVE); NITRITE,URINE NEGATIVE (NEGATIVE); PROTEIN,URINE TRACE (NEGATIVE)
[2022-11-19 18:54] LABS: BACTERIA,URINE FEW /HPF; RBC,URINE 0-2 /HPF
[2022-11-19] MEDS ORDERED: RX-ONDANSETRON 4 MG ODT (ZOFRAN) PPK #4 PO STA (19:28)
[2022-11-19] MEDS ORDERED: DOXY1TAB3 PO (19:31)
[2022-11-19] MEDS ORDERED: ONDA4TAB11 PO (19:31)
[2022-11-19] MEDS ORDERED: NITR-65 PO (19:36)
[2022-11-19] MEDS ORDERED: PIPERACILLIN SODIUM/TAZOBACTAM 4.5 GM in NS (IVPB) 100 ML IV ONE (19:45)
[2022-11-19 19:53] VITALS: BP 123/84
== END 2022-11-19 20:18 | disposition home or self-care (01) ==
LOC: EDUNIT# 17:25 → ER 17:27
DX: O21.9 Vomiting of pregnancy, unspecified (principal); O23.41 Unspecified infection of urinary tract in pregnancy, first trimester; N39.0 Urinary tract infection, site not specified; Z3A.11 11 weeks gestation of pregnancy; Z88.1 Allergy status to other antibiotic agents
CPT/HCPCS: 36415; 80053; 81000; 84702; 85025; 87088; 99284

== ENCOUNTER 2022-11-19 20:43 | Emergency (ER) | payer BC ==
[~2022-11-19] VITALS: Ht 167 cm; Wt 116.5 kg
[~2022-11-19 20:43] MED LIST changes: +DOXY1TAB3 PO; +NITR-65 PO
[2022-11-19] MEDS ORDERED: diphenhydrAMINE 50 MG/ML INJ (BENADRYL) IV STA (20:47)
[2022-11-19] MEDS ORDERED: methylPREDNISolone 125 MG (Solu-MEDROL) VIAL IV STA (20:47)
[2022-11-19] MEDS ORDERED: NS IV 1000 ML 1,000 ML IV SCH (21:00)
--- NOTE | 2022-11-19 21:27 | ED General ---
General Chief Complaint: Allergic Reaction Stated Complaint: POSS ALLERGIC REACTION Nursing Triage Note: PT C/O REDNESS AND HIVES ON FACE, NECK, AND CHEST AFTER TAKING ZOSYN IN ED. PT ALSO REPORTS SCRATCHINESS TO THROAT. DENIES ANY DIFFICULTY WITH SWALLOWING OR BREATHING. Source of Information: Patient History of Present Illness Date Seen by Provider: Nov 19, 2022 Time Seen by Provider: 20:47 Initial Comments PT ARRIVES VIA POV FROM HOME PT WAS JUST DISMISSED FROM ER A SHORT TIME AGO, AND WAS TREATED FOR NAUSEA/VOMITING OF ALONG WITH UTI SHE WAS GIVEN IV FLUIDS AND ZOFRAN ( WHICH SHE HAS HAD BEFORE AND NOT HAD PROBLEMS), AND WAS GIVEN A DOSE OF IV ZOSYN FOR UTI SHE DID NOT HAVE ANY PROBLEMS UNTIL SHE GOT HOME, WHEN SHE BEGAN TO FEEL FLUSHED IN THE FACE, AND BEGAN TO DEVELOP HIVES AND ITCHING TO HER FACE AND NECK, AND CAME BACK TO ER SHE HAS NOT HAD ANY SWELLING ANYWHERE, NO DIFFICULTY SWALLOWING, NO VOICE CHANGES, NO DIFFICULTY BREATHING OR WHEEZING NO DIZZINESS OR SYNCOPE Allergies and Home Medications Allergies Coded Allergies: cefaclor (Unverified Allergy, Mild, 01/20/09) medroxyprogesterone (Unverified Adverse Reaction, Unknown, nausea, 07/12/21) Patient Home Medication List Acetamin/Butalbital/Caffeine (Esgic 50-325-40 Mg Tablet) 1 Each Tablet, 1 EACH PO Q 4 - 6 HRS PRN Prescribed by: VLAD ACOSTA on 12/18/11 0527 Doxycycline Hyclate (Doxycycline Hyclate) 100 Mg Tablet, 100 MG PO BID Prescribed by: DEBBIE LOPEZ on 06/14/22 0925 Doxylamine/Pyridoxine HCl (Julia Alvarado 10-10 mg Tablet) 10 Mg-10 Mg Tablet.dr, 2 EACH PO HS Prescribed by: VLAD ACOSTA on 11/19/221930 Hydrocodone/Acetaminophen (Hydrocodone-Acetamin 5-325 mg) 1 Each Tablet, 1 TAB PO Q6H PRN for PAIN-MODERATE (5-7) Prescribed by: KARIME BYNUM on 07/12/212199 Nitrofurantoin Monohyd/M-Cryst (Macrobid 100 mg Capsule) 100 Mg Capsule, 1 TAB PO BID Prescribed by: VLAD ACOSTA on 2/11/23 1936 Ondansetron (Ondansetron Odt) 4 Mg Tab.rapdis, 4 MG PO Q6H PRN for NAUSEA/VOMITING Prescribed by: DBEBIE LOPEZ on 06/14/22 0925 Ondansetron (Ondansetron Odt) 4 Mg Tab.rapdis, 4 MG PO Q4H Prescribed by: VLAD ACOSTA on 11/19/22 193 Review of Systems Review of Systems Constitutional: no symptoms reported EENTM: see HPI Respiratory: no symptoms reported Cardiovascular: no symptoms reported Gastrointestinal: see HPI Genitourinary: see HPI Musculoskeletal: no symptoms reported Skin: see HPI Psychiatric/Neurological: No Symptoms Reported Past Wobxdjd-Xizwji-Pmwswm Hx Patient Social History Tobacco Use?: No Substance use?: No Alcohol Use?: No Immunizations Up To Date First/Initial COVID19 Vaccinat: YES Second COVID19 Vaccination Ismael: YES Third COVID19 Vaccination Date: YES Past Medical History Surgeries: Yes (Foreign body removed from foot (needle)) Respiratory: No Cardiac: No Neurological: Yes Headaches /Migraines : Yes Female Reproductive Disorders: Denies Genitourinary: Yes Bladder Infection Gastrointestinal: No Musculoskeletal: No Endocrine: No HEENT: No Cancer: No Psychosocial: No Integumentary: No Blood Disorders: No Physical Exam Vital Signs Vital Signs - First Documented 11/19/22 20:48 Temp 36.9 Pulse 87 Resp 18 B/P (MAP) 136/69 (91) Pulse Ox 98 O2 Delivery Room Air Capillary Refill : Less Than 3 Seconds Height, Weight, BMI Height: '" Weight: lbs. oz. kg; 41.00 BMI Method:Estimated General Appearance: No Apparent Distress, WD/WN HEENT: PERRL/EOMI, Normal ENT Inspection, Pharynx Normal, Moist Mucous Membranes, Other (NO SWELLING TO FACE, LIPS, TONGUE OR ORAL MUCOSA OR UVULA OR POSTERIOR PHARYNX. VOICE IS NORMAL. PT IS ABLE TO HANDLE SECRETIONS. ) Neck: Full Range of Motion, Normal Inspection, Non Tender, Supple Respiratory: Normal Breath Sounds, No Accessory Muscle Use, No Respiratory Distress Cardiovascular: Regular Rate, Rhythm, No Edema, No Murmur Gastrointestinal: Non Tender Extremity: Normal Capillary Refill, Normal Inspection, No Pedal Edema Neurologic/Psychiatric: Alert, Oriented x3, No Motor/Sensory Deficits, Normal Mood/Affect, moving worker II-XII Norm as Tested Skin: Warm/Dry, Other (FACE IS FLUSHED, WITH HIVES TO LOWER PART OF FACE, AND ANTERIOR NECK. NO RASH OR FLUSHING IS NOTED ANYWHERE ELSE ON BODY) Progress/Results/Core Measures Suspected Sepsis SIRS Temperature: Pulse: 87 Respiratory Rate: 18 Blood Pressure 136 /69 Mean: 91 Results/Orders My Orders Orders - VLAD ACOSTA DO Ed Iv/Invasive Line Start (11/19/22 20:47) Monitor-Rhythm Ecg Trace Only (11/19/22 20:47) Ed Iv/Invasive Line Start (11/19/22 20:47) Ns Iv 1000 Ml (Sodium Chloride 0.9%) (11/19/22 21:00) Diphenhydramine Injection (Benadryl Inje (11/19/22 20:47) Methylprednisolone Sod Succ (Solu-Medrol (11/19/22 20:47) Prednisone Tablet (Deltasone Tablet) (11/19/22 21:30) Vital Signs/I&O 11/19/22 20:48 Temp 36.9 Pulse 87 Resp 18 B/P (MAP) 136/69 (91) Pulse Ox 98 O2 Delivery Room Air Capillary Refill : Less Than 3 Seconds Blood Pressure Mean: 91 Progress Note : Progress Note GIVEN: -IV FLUIDS -BENADRYL -SOLU-MEDROL COMPLETE RESOLUTION OF ALL SYMPTOMS VITALS STABLE NO DYSPNEA NO HYPOXIA NO DETERIORATION OF PT'S CONDITION DURING ER STAY REVIEWED ANTICIPATED COURSE, SYMPTOMATIC TREATMENT, MEDICATIONS AND RETURN PRECAUTIONS WILL SEND HOME WITH PREDNISONE TABLETS, IF SYMPTOMS START TO RECUR OVER NIGHT, TO BE TAKING IN ADDITION TO BENADRYL SHE IS ADVISED TO RETURN TO ER IF SYMPTOMS DO NOT IMPROVE OR IF THEY WORSEN Departure Impression Primary Impression: Hives Additional Impression: ALLERGIC REACTION TO ZOSYN--PIPERACILLIN / TAZOBACTAM Disposition: HOME, SELF-CARE Condition: Improved Departure-Patient Inst. Decision time for Depature: 21:25 Referrals: CANDELARIA LOPEZ DO (PCP/Family) Primary Care Physician Patient Instructions: Adverse Drug Reactions, Adult ED, Hives (DC) Add. Discharge Instructions: HOME, REST YOU MAY TAKE BENADRYL 50 MG EVERY 4 HOURS NEEDED FOR RASH AND ITCHING YOU MAY TAKE 40 MG PREDNISONE IF YOUR HIVES AND ITCHING DO NOT IMPROVE WITH BENADRYL LOTS OF FLUIDS RETURN TO ER IF YOUR SYMPTOMS WORSEN OR DO NOT IMPROVE FOLLOW ALL PREVIOUS INSTRUCTIONS All discharge instructions reviewed with patient and/or family. Voiced understanding. VLAD ACOSTA DO Nov 19, 2022 21:27
[2022-11-19] MEDS ORDERED: predniSONE 20 MG TAB PO ONE (21:30)
[2022-11-19 22:04] VITALS: BP 129/75
== END 2022-11-19 22:04 | disposition home or self-care (01) ==
LOC: EDUNIT# 20:43 → ER 20:45
DX: L50.0 Allergic urticaria (principal); T36.0X5A Adverse effect of penicillins, initial encounter
CPT/HCPCS: 93041

== ENCOUNTER 2022-11-21 23:23 | Emergency (ER) | payer BC ==
[~2022-11-21] VITALS: Ht 168 cm; Wt 118.0 kg
[2022-11-21 23:47] VITALS: BP 125/54
[2022-11-21 23:58] LABS: BASOPHILS % (AUTO) 0 % (0-10); EOSINOPHILS # (AUTO) 0.1 10^3/uL (0.0-0.3); EOSINOPHILS % (AUTO) 1 % (0-10); HEMATOCRIT 39 % (35-52); HEMOGLOBIN 12.7 g/dL (11.5-16.0); LYMPHOCYTES # (AUTO) 2.8 10^3/uL (1.0-4.0); LYMPHOCYTES % (AUTO) 31 % (12-44); MEAN CORPUSCULAR HEMOGLOBIN 27 pg (25-34); MEAN CORPUSCULAR HGB CONC 33 g/dL (32-36); MEAN CORPUSCULAR VOLUME 83 fL (80-99); MEAN PLATELET VOLUME 10.3 fL (9.0-12.2); MONOCYTES # (AUTO) 0.6 10^3/uL (0.0-1.0); MONOCYTES % (AUTO) 6 % (0-12); NEUTROPHILS # (AUTO) 5.5 10^3/uL (1.8-7.8); NEUTROPHILS % (AUTO) 61 % (42-75); PLATELET COUNT 246 10^3/uL (130-400); WHITE BLOOD COUNT 8.9 10^3/uL (4.3-11.0)
--- NOTE | 2022-11-22 01:17 | ED GU-Female ---
General Chief Complaint: OB < 20 WEEKS Stated Complaint: 12 WKS PREG,VAG BLEEDING Nursing Triage Note: PT PRESENTS WITH C/O VAGINAL BLEEDING, SHE STATES SHE WENT TO THE BATHROOM AND NOTICED BLOOD WHEN SHE WIPED ALONG WITH A SMALL CLOT, AND A FEW DROPS IN THE TOILET. PT IS APPROX 12 WEEKS , GRAV 2, PAR 1, AB 1. SHE REPORTS A MISSCARRIAGE IN JUN. Source: patient, old records Exam Limitations: no limitations History of Present Illness Date Seen by Provider: Nov 21, 2022 Time Seen by Provider: 23:36 Allergies and Home Medications Allergies Coded Allergies: piperacillin (Verified Allergy, Intermediate, Hives, 11/19/22) tazobactam (Verified Allergy, Intermediate, Hives, 11/19/22) cefaclor (Unverified Allergy, Mild, 01/20/09) medroxyprogesterone (Unverified Adverse Reaction, Unknown, nausea, 07/12/21) Patient Home Medication List Acetamin/Butalbital/Caffeine (Esgic 50-325-40 Mg Tablet) 1 Each Tablet, 1 EACH PO Q 4 - 6 HRS PRN Prescribed by: VLAD ACOSTA on 12/18/11526 Doxycycline Hyclate (Doxycycline Hyclate) 100 Mg Tablet, 100 MG PO BID Prescribed by: DEBBIE LOPEZ on 06/14/22 09 Doxylamine/Pyridoxine HCl (Diclegis Dr 10-10 mg Tablet) 10 Mg-10 Mg Tablet.dr, 2 EACH PO HS Prescribed by: VLAD ACOSTA on 11/19/221930 Hydrocodone/Acetaminophen (Hydrocodone-Acetamin 5-325 mg) 1 Each Tablet, 1 TAB PO Q6H PRN for PAIN-MODERATE (5-7) Prescribed by: KARIME BYNUM on 07/12/212199 Nitrofurantoin Monohyd/M-Cryst (Macrobid 100 mg Capsule) 100 Mg Capsule, 1 TAB PO BID Prescribed by: VLAD ACOSTA on 11/19/221935 Ondansetron (Ondansetron Odt) 4 Mg Tab.rapdis, 4 MG PO Q6H PRN for NAUSEA/VOMITING Prescribed by: DEBBIE LOPEZ on 06/14/22 09 Ondansetron (Ondansetron Odt) 4 Mg Tab.rapdis, 4 MG PO Q4H Prescribed by: VLAD ACOSTA on 11/19/22 193 Review of Systems Review of Systems Expected Date of Delivery: Jun 02, 2023 Past Wkjxpyq-Zvxewm-Ibqpvf Hx Immunizations Up To Date Influenza Vaccine Up-to-Date: No; Not Current First/Initial COVID19 Vaccinat: YES Second COVID19 Vaccination Ismael: YES Third COVID19 Vaccination Date: YES Past Medical History Surgeries: Yes (Foreign body removed from foot (needle)) Respiratory: No Cardiac: No Neurological: Yes Headaches /Migraines Expected Date of Delivery: Jun 02, 2023 Last Menstrual Period: Aug 26, 2022 Female Reproductive Disorders: Denies Genitourinary: Yes Bladder Infection Gastrointestinal: No Musculoskeletal: No Endocrine: No HEENT: No Cancer: No Psychosocial: No Integumentary: No Blood Disorders: No Physical Exam Vital Signs Vital Signs - First Documented 11/21/22 23:47 Temp 36.9 Pulse 85 Resp 18 B/P (MAP) 125/54 (77) Capillary Refill : Less Than 3 Seconds Height, Weight, BMI Height: '" Weight: lbs. oz. kg; 41.00 BMI Method:Estimated Progress/Results/Core Measures Suspected Sepsis SIRS Temperature: Pulse: 85 Respiratory Rate: 18 Laboratory Tests 11/21/22 23:50: White Blood Count 8.9 Blood Pressure 125 /54 Mean: 77 Laboratory Tests 11/21/22 23:50: Platelet Count 246 Results/Orders Lab Results Laboratory Tests Test 11/21/22 23:50 Range/Units White Blood Count 8.9 4.3-11.0 10^3/uL Red Blood Count 4.71 3.80-5.11 10^6/uL Hemoglobin 12.7 11.5-16.0 g/dL Hematocrit 39 35-52 % Mean Corpuscular Volume 83 80-99 fL Mean Corpuscular Hemoglobin 27 25-34 pg Mean Corpuscular Hemoglobin Concent 33 32-36 g/dL Red Cell Distribution Width 13.8 10.0-14.5 % Platelet Count 246 130-400 10^3/uL Mean Platelet Volume 10.3 9.0-12.2 fL Immature Granulocyte % (Auto) 1 % Neutrophils (%) (Auto) 61 42-75 % Lymphocytes (%) (Auto) 31 12-44 % Monocytes (%) (Auto) 6 0-12 % Eosinophils (%) (Auto) 1 0-10 % Basophils (%) (Auto) 0 0-10 % Neutrophils # (Auto) 5.5 1.8-7.8 10^3/uL Lymphocytes # (Auto) 2.8 1.0-4.0 10^3/uL Monocytes # (Auto) 0.6 0.0-1.0 10^3/uL Eosinophils # (Auto) 0.1 0.0-0.3 10^3/uL Basophils # (Auto) 0.0 0.0-0.1 10^3/uL Immature Granulocyte # (Auto) 0.1 0.0-0.1 10^3/uL Human Chorionic Gonadotropin, Quant [id number] H <5 MIU/ML My Orders Orders - JAKE TA MD Cbc With Automated Diff (11/21/22 23:38) Hcg,Quantitative (11/21/22 23:38) Vital Signs/I&O 11/21/22 23:47 Temp 36.9 Pulse 85 Resp 18 B/P (MAP) 125/54 (77) Capillary Refill : Less Than 3 Seconds Blood Pressure Mean: 77 Departure Impression Primary Impression: Vaginal bleeding during Disposition: 01 HOME, SELF-CARE Condition: Stable Departure-Patient Inst. Decision time for Depature: 01:27 Referrals: CANDELARIA LOPEZ DO (PCP/Family) Primary Care Physician Patient Instructions: Bleeding in Early ED Add. Discharge Instructions: Your hCG hormone level is increasing appropriately and [id number] during this ER visit. heart tones were reassuring in the 150s by Doppler exam. Continue observing complete vaginal rest meaning nothing in the vagina including intercourse. Normal activities of daily living are permissible. Avoid extremely strenuous activities. Contact your cell assembly pinner later this morning for further instructions. Return to care if you have notably worsening symptoms or development of new symptoms such as intense pain or cramping, fever, hemorrhaging, etc. All discharge instructions reviewed with patient and/or family. Voiced understanding. JAKE TA MD Nov 22, 2022 01:17
== END 2022-11-22 01:34 | disposition home or self-care (01) ==
LOC: EDUNIT# 23:23 → ER 23:26
DX: O20.9 Hemorrhage in early pregnancy, unspecified (principal); Z3A.12 12 weeks gestation of pregnancy
CPT/HCPCS: 36415; 84702; 85025; 99282

== ENCOUNTER 2022-11-25 21:45 | Emergency (ER) | payer BC ==
[~2022-11-25] VITALS: Ht 167.7 cm; Wt 117.9 kg
[2022-11-25] MEDS ORDERED: LACTATED RINGERS 1,000 ML IV ONE (22:15)
[2022-11-25] MEDS ORDERED: ONDANSETRON 4 MG/2 ML (SDV) Z0FRAN IVP ONE (22:15)
--- NOTE | 2022-11-25 22:16 | ED GI ---
General Stated Complaint: VOMITING BLOOD 13 WKS PREG Source of Information: Patient, Old Records History of Present Illness Date Seen by Provider: Nov 25, 2022 Time Seen by Provider: 22:00 Initial Comments PT ARRIVES VIA POV FROM HOME PT IS 13 WEEKS AND HAS HAD ONGOING NAUSEA AND VOMITING DURING SHE HAS PRESCRIPTIONS FOR ZOFRAN, REGLAN AND DICLEGIS AT HOME SHE STATES SHE HAS BEEN "VOMITING ALL DAY" --SHE HAS VOMITED 5-6 TIMES TODAY, AND THE LAST 3 EMESIS HAD STREAKS OF BLOOD IN IT. NO ABDOMINAL PAIN NO DIARRHEA NO FEVER NO VAGINAL BLEEDING PT IS URINATING A NORMAL AMOUNT SHE WAS SEEN HERE 11/19/22 FOR THIS PROBLEM, AND WAS GIVEN ZOFRAN AND IV FLUIDS SHE WAS FOUND TO HAVE A UTI AT THAT TIME, AND WAS GIVEN IV ZOSYN. SHE RETURNED TO ER THAT EVENING AFTER DEVELOPING HIVES-THOUGHT TO BE DUE TO ZOSYN. SHE WAS SEEN AGAIN IN ER 11/21/22 FOR VAGINAL BLEEDING. Allergies and Home Medications Allergies Coded Allergies: piperacillin (Verified Allergy, Intermediate, Hives, 11/19/22) tazobactam (Verified Allergy, Intermediate, Hives, 11/19/22) cefaclor (Unverified Allergy, Mild, 01/20/09) medroxyprogesterone (Unverified Adverse Reaction, Unknown, nausea, 07/12/21) Patient Home Medication List Acetamin/Butalbital/Caffeine (Esgic 50-325-40 Mg Tablet) 1 Each Tablet, 1 EACH PO Q 4 - 6 HRS PRN Prescribed by: VLAD ACOSTA on 12/18/11 0527 Doxycycline Hyclate (Doxycycline Hyclate) 100 Mg Tablet, 100 MG PO BID Prescribed by: DEBBIE LOPEZ on 06/14/22 0925 Doxylamine/Pyridoxine HCl (Diclegis Dr 10-10 mg Tablet) 10 Mg-10 Mg Tablet.dr, 2 EACH PO HS Prescribed by: VLAD ACOSTA on 11/19/22 193 Hydrocodone/Acetaminophen (Hydrocodone-Acetamin 5-325 mg) 1 Each Tablet, 1 TAB PO Q6H PRN for PAIN-MODERATE (5-7) Prescribed by: KARIME BYNUM on 07/12/212199 Nitrofurantoin Monohyd/M-Cryst (Macrobid 100 mg Capsule) 100 Mg Capsule, 1 TAB PO BID Prescribed by: VLAD ACOSTA on 11/19/221935 Ondansetron (Ondansetron Odt) 4 Mg Tab.rapdis, 4 MG PO Q6H PRN for NAUSEA/VOMITING Prescribed by: DEBBIE LOPEZ on 06/14/22 09 Ondansetron (Ondansetron Odt) 4 Mg Tab.rapdis, 4 MG PO Q4H Prescribed by: VLAD ACOSTA on 11/19/221930 Past Nquvcis-Sytlqt-Ztbfwa Hx Immunizations Up To Date First/Initial COVID19 Vaccinat: YES Second COVID19 Vaccination Ismael: YES Third COVID19 Vaccination Date: YES Past Medical History Surgeries: Yes (Foreign body removed from foot (needle)) Respiratory: No Cardiac: No Neurological: Yes Headaches /Migraines Female Reproductive Disorders: Denies Genitourinary: Yes Bladder Infection Gastrointestinal: No Musculoskeletal: No Endocrine: No HEENT: No Cancer: No Psychosocial: No Integumentary: No Blood Disorders: No Physical Exam Vital Signs Vital Signs - First Documented 11/25/22 21:54 Temp 36.0 Pulse 105 Resp 17 B/P (MAP) 125/77 (93) O2 Delivery Room Air Capillary Refill : Height/Weight/BMI Height: '" Weight: lbs. oz. kg; 41.00 BMI Method:Estimated Progress/Results/Core Measures Results/Orders Lab Results Laboratory Tests Test 11/25/22 22:11 11/25/22 22:20 Range/Units White Blood Count 11.9 H 4.3-11.0 10^3/uL Red Blood Count 5.30 H 3.80-5.11 10^6/uL Hemoglobin 14.1 11.5-16.0 g/dL Hematocrit 43 35-52 % Mean Corpuscular Volume 82 80-99 fL Mean Corpuscular Hemoglobin 27 25-34 pg Mean Corpuscular Hemoglobin Concent 33 32-36 g/dL Red Cell Distribution Width 14.0 10.0-14.5 % Platelet Count 301 130-400 10^3/uL Mean Platelet Volume 10.3 9.0-12.2 fL Immature Granulocyte % (Auto) 1 % Neutrophils (%) (Auto) 69 42-75 % Lymphocytes (%) (Auto) 23 12-44 % Monocytes (%) (Auto) 7 0-12 % Eosinophils (%) (Auto) 1 0-10 % Basophils (%) (Auto) 1 0-10 % Neutrophils # (Auto) 8.2 H 1.8-7.8 10^3/uL Lymphocytes # (Auto) 2.7 1.0-4.0 10^3/uL Monocytes # (Auto) 0.8 0.0-1.0 10^3/uL Eosinophils # (Auto) 0.1 0.0-0.3 10^3/uL Basophils # (Auto) 0.1 0.0-0.1 10^3/uL Immature Granulocyte # (Auto) 0.1 0.0-0.1 10^3/uL Prothrombin Time 14.1 12.2-14.7 SEC INR Comment 1.0 0.8-1.4 Activated Partial Thromboplast Time 30 24-35 SEC Sodium Level 137 135-145 MMOL/L Potassium Level 3.5 L 3.6-5.0 MMOL/L Chloride Level 103 98-107 MMOL/L Carbon Dioxide Level 20 L 21-32 MMOL/L Anion Gap 14 5-14 MMOL/L Blood Urea Nitrogen 5 L 7-18 MG/DL Creatinine 0.68 0.60-1.30 MG/DL Estimat Glomerular Filtration Rate 119 BUN/Creatinine Ratio 7 Glucose Level 89 70-105 MG/DL Calcium Level 9.7 8.5-10.1 MG/DL Corrected Calcium 9.5 8.5-10.1 MG/DL Magnesium Level 1.8 1.6-2.4 MG/DL Total Bilirubin 0.5 0.1-1.0 MG/DL Aspartate Amino Transf (AST/SGOT) 14 5-34 U/L Alanine Aminotransferase (ALT/SGPT) 36 0-55 U/L Alkaline Phosphatase 82 40-136 U/L Total Protein 7.6 6.4-8.2 GM/DL Albumin 4.2 3.2-4.5 GM/DL Amylase Level 29 25-125 U/L Lipase 15 8-78 U/L Human Chorionic Gonadotropin, Quant [id number] H <5 MIU/ML Urine Color ORANGE Urine Clarity CLEAR Urine pH 6.0 5-9 Urine Specific [place] >=1.030 1.016-1.022 Urine Protein 1+ H NEGATIVE Urine Glucose (UA) NEGATIVE NEGATIVE Urine Ketones 2+ H NEGATIVE Urine Nitrite NEGATIVE NEGATIVE Urine Bilirubin NEGATIVE NEGATIVE Urine Urobilinogen 1.0 < = 1.0 MG/DL Urine Leukocyte Esterase 1+ H NEGATIVE Urine RBC (Auto) 1+ H NEGATIVE Urine RBC 0-2 /HPF Urine WBC 25-50 H /HPF Urine Squamous Epithelial Cells >50 H /HPF Urine Crystals PRESENT H /LPF Urine Amorphous Sediment FEW [place]OR[place] URATES H /LPF Urine Bacteria LARGE H /HPF Urine Casts NONE /LPF Urine Mucus LARGE H /LPF Urine Culture Indicated NO Urine Opiates Screen NEGATIVE NEGATIVE Urine Oxycodone Screen NEGATIVE NEGATIVE Urine Methadone Screen NEGATIVE NEGATIVE Urine Propoxyphene Screen NEGATIVE NEGATIVE Urine Barbiturates Screen NEGATIVE NEGATIVE Ur Tricyclic Antidepressants Screen NEGATIVE NEGATIVE Urine Phencyclidine Screen NEGATIVE NEGATIVE Urine Amphetamines Screen NEGATIVE NEGATIVE Urine Methamphetamines Screen NEGATIVE NEGATIVE Urine Benzodiazepines Screen NEGATIVE NEGATIVE Urine Cocaine Screen NEGATIVE NEGATIVE Urine Cannabinoids Screen NEGATIVE NEGATIVE My Orders Orders - VLAD ACOSTA DO Ed Iv/Invasive Line Start (11/25/22 22:01) Monitor-Rhythm Ecg Trace Only (11/25/22 22:01) Amylase (11/25/22 22:) Cbc With Automated Diff (11/25/22 22:01) Comprehensive Metabolic Panel (11/25/22 22:01) Drug Screen Stat (Urine) (11/25/22 22:01) Hcg,Quantitative (11/25/22 22:) Lipase (11/25/22 22:01) Magnesium (11/25/22 22:01) Protime With Inr (11/25/22 22:01) Partial Thromboplastin Time (11/25/22 22:01) Ua Culture If Indicated (11/25/22 22:01) Ed Iv/Invasive Line Start (11/25/22 22:01) Ed Iv/Invasive Line Start (11/25/22 22:01) Lactated Ringers (Lr 1000 Ml Iv Solution (11/25/22 22:15) Ondansetron Injection (Zofran Injectio (11/25/22 22:15) Heart Tones (11/25/22 22:16) Medications Given in ED Current Medications Medications Dose Ordered Sig/Joan Route Start Time Stop Time Status Last Admin Dose Admin Lactated Ringer's 1,000 ml @ 0 mls/hr Q0M ONCE IV 11/25/22 22:15 11/25/22 22:16 DC 11/25/22 22:18 999 MLS/HR Ondansetron HCl 8 mg ONCE ONCE IVP 11/25/22 22:15 11/25/22 22:16 DC 11/25/22 22:18 8 MG Vital Signs/I&O 11/25/22 21:54 Temp 36.0 Pulse 105 Resp 17 B/P (MAP) 125/77 (93) O2 Delivery Room Air Departure Impression Primary Impression: Nausea and vomiting during prior to 22 weeks gestation Additional Impression: UTI (urinary tract infection) in in first trimester Disposition: 01 HOME, SELF-CARE Condition: Improved Departure-Patient Inst. Decision time for Depature: 23:18 Referrals: CANDELARIA LOPEZ DO (PCP) Primary Care Physician Patient Instructions: Morning Sickness (DC), Urinary Tract Infections in Add. Discharge Instructions: CONTINUE DICLEGIS EVERY NIGHT CONTINUE ZOFRAN EVERY 4 HOURS NEEDED YOU MAY TAKE REGLAN EVERY 6 HOURS, OR YOU MAY SUBSTITUTE WITH PHENERGAN SUPPOSITORIES EVERY 6 HOURS IF NEEDED CONTINUE MACROBID TWICE A DAY PRESCRIBED FOLLOW UP WITH YOUR MACHINE TESTER NEXT WEEK FOR FURTHER CARE RETURN TO ER IF SYMPTOMS WORSEN Scripts Promethazine HCl (Promethazine Suppository) 25 Mg Supp.rect 25 MG RC Q6 for Nausea/Vomiting, #10 SUPP.RECT Prov: VLAD ACOSTA DO 11/25/22 VLAD ACOSTA DO Nov 25, 2022 22:16
[2022-11-25 22:20] LABS: BASOPHILS # (AUTO) 0.1 10^3/uL (0.0-0.1); BASOPHILS % (AUTO) 1 % (0-10); EOSINOPHILS # (AUTO) 0.1 10^3/uL (0.0-0.3); EOSINOPHILS % (AUTO) 1 % (0-10); HEMATOCRIT 43 % (35-52); HEMOGLOBIN 14.1 g/dL (11.5-16.0); LYMPHOCYTES # (AUTO) 2.7 10^3/uL (1.0-4.0); LYMPHOCYTES % (AUTO) 23 % (12-44); MEAN CORPUSCULAR HEMOGLOBIN 27 pg (25-34); MEAN CORPUSCULAR HGB CONC 33 g/dL (32-36); MEAN CORPUSCULAR VOLUME 82 fL (80-99); MEAN PLATELET VOLUME 10.3 fL (9.0-12.2); MONOCYTES # (AUTO) 0.8 10^3/uL (0.0-1.0); MONOCYTES % (AUTO) 7 % (0-12); NEUTROPHILS # (AUTO) 8.2 10^3/uL (1.8-7.8); NEUTROPHILS % (AUTO) 69 % (42-75); PLATELET COUNT 301 10^3/uL (130-400); WHITE BLOOD COUNT 11.9 10^3/uL (4.3-11.0)
[2022-11-25 22:27] LABS: BILIRUBIN,URINE NEGATIVE (NEGATIVE); CLARITY,URINE CLEAR; COLOR,URINE ORANGE; GLUCOSE, URINE (UA) NEGATIVE (NEGATIVE); KETONES,URINE 2+ (NEGATIVE); LEUKOCYTE ESTERASE ,URINE 1+ (NEGATIVE); NITRITE,URINE NEGATIVE (NEGATIVE); PROTEIN,URINE 1+ (NEGATIVE)
[2022-11-25 22:28] LABS: PROTHROMBIN TIME PATIENT 14.1 SEC (12.2-14.7)
[2022-11-25 22:29] LABS: ALBUMIN 4.2 GM/DL (3.2-4.5); POTASSIUM 3.5 MMOL/L (3.6-5.0)
[2022-11-25 22:30] LABS: CALCIUM 9.7 MG/DL (8.5-10.1)
[2022-11-25 22:32] LABS: TOTAL PROTEIN 7.6 GM/DL (6.4-8.2)
[2022-11-25 22:33] LABS: BILIRUBIN,TOTAL 0.5 MG/DL (0.1-1.0)
[2022-11-25 22:35] LABS: CREATININE SERUM 0.68 MG/DL (0.60-1.30)
[2022-11-25 22:36] LABS: BACTERIA,URINE LARGE /HPF; RBC,URINE 0-2 /HPF; SQUAMOUS EPITHELIAL CELL,UR >50 /HPF; WBC,URINE 25-50 /HPF
[2022-11-25 22:37] LABS: AMORPHOUS SEDIMENT,UR FEW AMOR URATES /LPF
[2022-11-25 22:38] LABS: MAGNESIUM 1.8 MG/DL (1.6-2.4)
[2022-11-25 22:41] LABS: AMPHETAMINE SCREEN, URINE NEGATIVE (NEGATIVE); BARBITURATE SCREEN URINE NEGATIVE (NEGATIVE); BENZODIAZEPINES SCREEN URINE NEGATIVE (NEGATIVE); CANNABINOID SCREEN, URINE NEGATIVE (NEGATIVE); COCAINE SCREEN URINE NEGATIVE (NEGATIVE); METHADONE STAT NEGATIVE (NEGATIVE); OPIATE SCREEN URINE NEGATIVE (NEGATIVE); OXYCODONE STAT NEGATIVE (NEGATIVE); PROPOXYPHENE STAT NEGATIVE (NEGATIVE); TRICYCLIC ANTIDEPRESSANTS SCRE NEGATIVE (NEGATIVE)
[2022-11-25] MEDS ORDERED: PROM25SU44 RC (23:20)
[2022-11-25] MEDS ORDERED: RX-PHENERGAN 25 MG SUPP PPK#3 PR STA (23:28)
[2022-11-25 23:40] VITALS: BP 131/90
== END 2022-11-25 23:40 | disposition home or self-care (01) ==
LOC: EDUNIT# 21:45 → ER 21:47
DX: O21.9 Vomiting of pregnancy, unspecified (principal); O23.41 Unspecified infection of urinary tract in pregnancy, first trimester; N39.0 Urinary tract infection, site not specified; Z3A.13 13 weeks gestation of pregnancy
CPT/HCPCS: 36415; 80053; 80306; 81000; 82150; 83690; 83735; 84702; 85025; 85610; 85730; 93041

== ENCOUNTER 2023-04-23 13:21 | Outpatient (CLI) | payer BC ==
[2023-04-23] VITALS (7 sets, daily range): BP systolic 121–139; BP diastolic 66–80
[~2023-04-23] VITALS: Ht 167.7 cm; Wt 120.2 kg
[~2023-04-23 13:21] MED LIST changes: +PROM25SU44 RC
[2023-04-23 13:43] LABS: BILIRUBIN,URINE NEGATIVE (NEGATIVE); CLARITY,URINE CLEAR; COLOR,URINE YELLOW; GLUCOSE, URINE (UA) TRACE (NEGATIVE); KETONES,URINE NEGATIVE (NEGATIVE); LEUKOCYTE ESTERASE ,URINE 1+ (NEGATIVE); NITRITE,URINE NEGATIVE (NEGATIVE); PROTEIN,URINE NEGATIVE (NEGATIVE)
[2023-04-23 14:18] LABS: BACTERIA,URINE NEGATIVE /HPF; RBC,URINE RARE /HPF
[2023-04-23] MEDS ORDERED: LACTATED RINGERS 1,000 ML IV ONE (14:44)
[2023-04-23] MEDS ORDERED: ONDANSETRON 4 MG/2 ML (SDV) Z0FRAN ONE (14:44)
[2023-04-23] MEDS ORDERED: LACTATED RINGERS 1,000 ML IV SCH ×2 (14:45→16:30)
[2023-04-23] MEDS ORDERED: ONDANSETRON 4 MG/2 ML (SDV) Z0FRAN IVP PRN (14:45)
--- NOTE | 2023-04-23 18:39 | OB Triage Report ---
Standard Progress Note Progress Notes/Assess & Plan Date Seen by a Provider: Apr 23, 2023 Time Seen by a Provider: 15:00 Expected Date of Delivery: Jun 02, 2023 Gestational Age in Weeks: 34 Gestational Age in Days: 2 LMP/SHYLA Comment: ABOVE Progress/Assessment & Plan OB Physician Support Coordinator: S: 33 y.o. @ 34 2/7 weeks, patient of Dr. Smith in [place], [place]. No medical records. Patient lives in [place]. Patient presents with acute onset today of N/V, lightheaded and dizzinezz. No other complaints. Per patient no significant PMH. Denies regular uterine contractions, bleeding of leakage of fluid. O: VSS/AF UA negative for nitrites, SG 1.010 Category I FHR tracing with rare mild contraction and irritability per RN, no regular uterine contractions. Cervical exam not performed given patient not beltran regularly and CC was not contractions. A/P: Acute viral syndrome. Patient given 2L of IV LR over 2 hours and Zofran 4 mg IV, and feels much improved. After 2nd bag of LR completed patient still has Category I FHR tracing with only irritability, no contractions. Taking ice chips by mouth while here. States she is hungry, would like to eat and go home. Released to home with precautions. Told to avoid sudden movements that might exacerbate her dizziness, reassured sx should improve with time and rest. F/U with PCM, here emergently prn. Final Diagnosis 34 weeks Third Trimester Acute Viral Syndrome LALY YIP DO Apr 23, 2023 18:39
== END 2023-04-23 17:25 | disposition home or self-care (01) ==
LOC: WSo 13:21 → LDRP 13:22 → WSo 17:25
PROVIDERS: ATTEND Obstetrics & Gynecology
DX: O98.513 Other viral diseases complicating pregnancy, third trimester (principal); Z3A.34 34 weeks gestation of pregnancy
CPT/HCPCS: 81000; 96360; 96375; 99213